=== PATIENT | male | born 1995 | race Caucasian/White ===

== ENCOUNTER 2017-08-07 12:41 | Emergency (ER) | payer OTHER ==
[~2017-08-07] VITALS: Ht 180.3 cm; Wt 82.0 kg
[~2017-08-07 12:41] MED LIST: MOTRIN800 MG PO; NOHOMEMEDS
[2017-08-07 13:34] LABS: APPEARANCE CLEAR ((CLEAR)); BILIRUBIN NEGATIVE; BLOOD NEGATIVE; COLOR STRAW ((YELLOW)); GLUCOSE (STRIP) NEGATIVE; KETONES 20; LEUKOCYTES NEGATIVE; NITRITE NEGATIVE; PROTEIN (STRIP) NEGATIVE; SPECIFIC GRAVITY 1.008 (1.000-1.030); UROBILINOGEN 0.2 MG/DL (0.2-1.0)
[2017-08-07 13:41] LABS: AMPHETAMINE NEGATIVE (500 ng/mL); BENZODIAZEPINES NEGATIVE (150 ng/mL); COCAINE NEGATIVE (150 ng/mL); METHAMPHETAMINE NEGATIVE (500 ng/mL); OPIATES (MORPHINE) NEGATIVE (100 ng/mL); PHENCYCLIDINE NEGATIVE (25 ng/mL); THC CANNABINOIDS NEGATIVE (50 ng/mL); TRICYCLIC ANTIDEPRESSANTS NEGATIVE (300 ng/mL)
[2017-08-07 13:42] LABS: BARBITURATES NEGATIVE (200 ng/mL); BUPRENORPHINE NEGATIVE (10 ng/mL); METHADONE NEGATIVE (200 ng/mL); OXYCODONE NEGATIVE (100 ng/mL); PROPOXYPHENE NEGATIVE (300 ng/mL)
[2017-08-07] MEDS ORDERED: ATARAX,VISTARIL25 MG PO (14:40)
[2017-08-07 14:57] LABS: MCH 27.8 PG (29.0-34.0); MCHC 33.3 G/DL (30.0-36.0); MCV 83.3 FL (86-99); PLATELET COUNT 243 K/uL (156-360); RBC DIS.WIDTH-SD 39.7 % (39-53); RED BLOOD COUNT 5.04 M/uL (4.00-5.50); WHITE BLOOD COUNT 7.1 K/uL (4.1-10.2)
[2017-08-07 15:27] LABS: ALBUMIN 4.7 G/DL (3.2-4.8); CHLORIDE 102 MEQ/L (99-109); POTASSIUM 3.2 MEQ/L (3.7-5.4); SODIUM 139 MEQ/L (136-147); TOTAL BILIRUBIN 0.9 MG/DL (0.0-1.0)
[2017-08-07 15:33] LABS: ALKALINE PHOSPHATASE 66 IU/L (3-129); ALT (GPT) 10 IU/L (3-49); AST (GOT) 18 IU/L (2-34); GFR ESTIMATE (CALCULATED) > 59 mL/min/ (58.99-99999); GLUCOSE 85 mg/dL (70-99); SERUM ETHYL ALCOHOL < 10 mg/dL; TOTAL PROTEIN 7.7 G/DL (6.4-8.3); UREA NITROGEN (BUN) 6 mg/dL (9-23)
[2017-08-07 15:41] VITALS: BP 136/71
[2017-08-07 16:30] LABS: THYROTROPIN (TSH) 1.3 MIU/L (0.4-5.5)
== END 2017-08-07 15:45 | disposition home or self-care (01) ==
LOC: EME 12:41
PROVIDERS: Emergency Medicine
DX: F43.23 Adjustment disorder with mixed anxiety and depressed mood (principal); F17.200 Nicotine dependence, unspecified, uncomplicated
CPT/HCPCS: 80053; 81003; 84443; 85027; 90839; 99281; 99284; G0480